=== PATIENT | male | born 1975 | race African-American/Black ===

== ENCOUNTER 2018-10-10 17:52 | Inpatient (IN) | payer OTHER ==
[~2018-10-10] VITALS: Ht 172.7 cm; Wt 77.9 kg
--- NOTE | ~2018-10-10 | HC ---
[facility] [place] [address] CONSULTATION Name: ARTHUR POP Room #: 456-P ADM IN M.R.#: [id number] Admission: 10/10/18 Attend Phys: Russel Muñoz MD Discharge: Date of : 77 Report #: [id number] THIS REPORT FOR: //name// CC: Russel Bonilla DATE OF SERVICE: 10/11/2018 REASON FOR CONSULTATION: Elevated creatinine. HISTORY OF PRESENT ILLNESS: This is a 42-year-old who is really not able to provide me with the details of his history who was brought because of lower extremity swelling and ulceration. He is known to have peripheral vascular disease, diabetes mellitus, hypertension per records. He is also known to have end-stage renal disease and was on dialysis for a couple of months. He used to follow up at [facility]. There is also a mention that the patient had a lengthy stay at [facility] requiring hemodialysis. He was told that he no longer is in need for dialysis. He has severe diastolic dysfunction along with severely hypokinetic inferior wall on his cardiac echo with ejection fractions of around 35%. He also has significant pulmonary hypertension. He presented to the Emergency Room reporting that he had been having some leg pain and swelling. He was admitted to be further evaluated. He also reported fever and vomiting on his presentation. He was diagnosed recently to have C. diff. The details of those were obtained from the medical records. He stays in [facility]. PAST MEDICAL HISTORY: Obtained from the medical record: 1. Diabetes mellitus. 2. Hypertension. 3. Left below-knee amputation. 4. Noncompliance. 5. End-stage renal disease. 6. Cardiomyopathy. MEDICATIONS: 1. Amlodipine. 2. Carvedilol. 3. Vancomycin. 4. Furosemide. 5. Sodium bicarbonate. 6. Aldactone. FAMILY HISTORY: Dad was diabetic and hypertensive. Dad also had end-stage renal disease. SOCIAL HISTORY: Currently resides in a nursing facility. [facility] [address] [place] [address] CONSULTATION Name: ARTHUR POP Room #: 456-[facility] IN M.R.#: [id number] Admission: 10/10/18 Attend Phys: Russel Muñoz MD Discharge: Date of : 77 Report #: [id number] REVIEW OF SYSTEMS: I was unable to obtain review of systems from the patient given his mental status. PHYSICAL EXAMINATION: VITAL SIGNS: He is lethargic, confused. Blood pressure was 89/53 when evaluated. Temperature max was 39.4. HEAD AND NECK: No jugular venous distention. He has a left-sided Tesio catheter. CHEST: Decreased air entry bilaterally. CARDIOVASCULAR: No rub detected. ABDOMEN: Soft, nontender. LOWER EXTREMITIES: He has a left below knee amputation. His right lower extremity is grossly swollen. He has a dressing wrapped around his right ankle. He has +3 edema. LABORATORY DATA: Reviewed. Most recent labs revealed white blood cell count of 8.5%. Hemoglobin is 11.7. Sodium was 139, chloride was 109, carbon dioxide was 18, BUN was 57, creatinine was 5.2. CPK was 424. AST was elevated at 49, ALT was elevated at 89. Albumin was significantly low at 0.9. Microbiology showed that his blood cultures are positive for Gram-positive cocci. ASSESSMENT, IMPRESSION, PLAN: 1. End-stage renal disease. 2. Gram-positive bacteremia. 3. Diabetes mellitus. 4. Hypertension. 5. Sepsis. 6. Right lower extremity wound and cellulitis. 7. This seems to be in all end-stage renal disease given the patient's current history. I would like to obtain his previous medical records. He was recently told that he no longer will need dialysis and will have to obtain his previous labs. He had utilized a left Tesio catheter in the past. 8. He is acidotic that is maintained on sodium bicarbonate. He is hypotensive and I will stop his blood pressure medications. 9. For his Gram-negative bacteremia and his hypertension, he might need to move down to the intensive care unit and I will defer that to the primary team if his condition deteriorates. 10. Empiric antibiotic coverage. 11. Wound care. 12. No dialysis is needed at this point. 13. Bolus with IV fluid if needed. 14. He is definitely hypervolemic and will need to resume his diuretics. 15. ID consultation. 16. Wound care to see. [address] [address] CONSULTATION Name: ARTHUR POP Room #: 456-P ADM IN M.R.#: [id number] Admission: 10/10/18 Attend Phys: Russel Muñoz MD Discharge: Date of : 77 Report #: [id number] Further management will be decided after we obtain his medical records. By: 2046 [id number] Tamy Hernández, /nt
--- NOTE | ~2018-10-10 | 2DMMODE ---
[facility] [address] [place] [address] 2 D/M-MODE ECHOCARDIOGRAM Name: ARTHUR POP Room #: 456-P ADM IN M.R.#: [id number] Admission: 10/10/18 Attend Phys: Russel Muñoz MD Discharge: Date of : 77 Date of Service: 10/11/18 1507 Report #: [id number] THIS REPORT FOR: //name// APPROVED REPORT Study performed: 10/11/2018 12:30:39 EXAM: Comprehensive 2D, Doppler, and color-flow Echocardiogram Patient Location: Bedside Room #: 456 Status: routine BSA: 1.91 HR: 90 bpm BP: 120/73 mmHg Rhythm: NSR Other Information Study Quality: Excellent/limited patient cooperation Indications Pericaridal effusion. Hx: DM, HTN, left BKA 2D Dimensions RVDd: 42.27 mm IVSd: 12.76 (7-11mm) LVOT Diam: 21.33 (18-24mm) LVDd: 52.33 mm PWd: 13.05 (7-11mm) Ascending Ao: 27.64 (22-36mm) LVDs: 43.52 (25-40mm) Aortic Root: 30.61 mm Volumes Left Atrial Volume (Systole) Single Plane 4CH: 98.41 mL Single Plane 2CH: 90.54 mL LA ESV Index: 54.00 mL/m2 Aortic Valve AoV Peak Aden.: 1.23 m/s AO Peak Gr.: 6.06 mmHg LVOT Max P.38 mmHg LVOT Max V: 0.77 m/s CHASITY Vmax: 2.24 cm2 Mitral Valve E/A Ratio: 2.6 MV Decel. Time: 107.60 ms [facility] [place] [address] [place] [address] 2 D/M-MODE ECHOCARDIOGRAM Name: KARI POPNETH Room #: 456-P [facility] IN .R.#: [id number] Admission: 10/10/18 Attend Phys: Russel Muñoz MD Discharge: Date of : 77 Date of Service: 10/11/18 1507 Report #: [id number] MV E Max Aden.: 1.19 m/s MV A Aden.: 0.45 m/s MV PHT: 31.20 ms IVRT: 34.60 ms Pulmonary Valve PV Peak Aden.: 0.95 m/s PV Peak Gr.: 3.61 mmHg Pulmonary Vein P Vein S: 0.46 m/s P Vein D: 0.60 m/s P Vein S/D Ratio: 0.77 Tricuspid Valve TR Peak Aden.: 3.22 m/s RAP Estimate: 15.00 mmHg TR Peak Gr.: 41.49 mmHg PA Pressure: 57.00 mmHg Left Ventricle The left ventricle is normal size. There is global hypokinesis of the left ventricle. Mild concentric left ventricular hypertrophy. Left ventricular systolic function is moderate to severely decreased. Base of inferior wall severely hypokinetic. LVEF 35%. Severe diastolic dysfunction is present (restrictive filling). Right Ventricle Right ventricle is at the upper limits of normal. Atria Left atrium is moderate to severely dilated. Right atrium is at the upper limits of normal. Aortic Valve The aortic valve is normal in structure. No aortic regurgitation is present. There is no aortic valvular stenosis. Mitral Valve The mitral valve is normal in structure. Moderate mitral regurgitation. Tricuspid Valve The tricuspid valve is normal in structure. Mild to moderate tricuspid regurgitation. Estimated PAP is 55-60mmHg. Pulmonic Valve The pulmonary valve is normal in structure. Mild pulmonic [address] [address] 2 D/M-MODE ECHOCARDIOGRAM Name: DONNDENISE REYESH Room #: 456-P ADM IN M.R.#: [id number] Admission: 10/10/18 Attend Phys: Russel Muñoz MD Discharge: Date of : 77 Date of Service: 10/11/18 1507 Report #: [id number] regurgitation. Great Vessels The aortic root is normal in size. The ascending aorta is normal in size. IVC is dilated and collapses <50% with inspiration. Pericardium Small pericardial effusion <Conclusion> Left ventricular systolic function is moderate to severely decreased. Base of inferior wall severely hypokinetic. LVEF 35%. Severe diastolic dysfunction (restrictive filling). Left atrium is moderate to severely dilated. The aortic valve is normal in structure. No aortic regurgitation or stenosis The mitral valve is normal in structure. Moderate mitral regurgitation. Mild to moderate tricuspid regurgitation. Estimated pullmonary artery pressure of 55-60mmHg. Small pericardial effusion <ELECTRONICALLY SIGNED> By: Donn Pierce MD, FACC 10/11/18 1507 150 150 Donn Pierce MD, FACC /INF
--- NOTE | ~2018-10-10 | HC ---
[facility] [place] [address] CONSULTATION Name: ARTHUR POP Room #: 456-P ADM IN M.R.#: [id number] Admission: 10/10/18 Attend Phys: Russel Muñoz MD Discharge: Date of : 77 Report #: [id number] THIS REPORT FOR: //name// CC: Russel Bonilla DATE OF SERVICE: 10/17/2018 HISTORY OF PRESENT ILLNESS: The patient is a 42-year-old -Danish male, admitted with sepsis, noted to have right leg cellulitis, right heel wound. He is noted to have soft tissue infection with chronic wound, posterior calcaneus. Infectious Disease has been following. He is on IV ceftriaxone. Wound care is involved as well. He also was noted to have a small pericardial effusion. He has chronic kidney disease stage 4-5 and has had recent dialysis, although he is not currently on dialysis. There have been some problems with noncompliance at times with refusal to take medications, which was happening prior to his hospitalization as well. He has also recently had C. diff and Infectious Disease is continuing to follow in this regard. From my review, I do not see that this is an ongoing current problem however. PAST MEDICAL HISTORY: Includes diabetes mellitus, hypertension, renal insufficiency with recent past dialysis. He has had a prior left below knee amputation. He has had prior stays at [facility] prior to going to [facility]. SOCIAL HISTORY: He lives at [facility]. He was noted to be able to transfer in and out of the wheelchair and could propel himself in the manual wheelchair. REVIEW OF SYSTEMS: He complains of headache. No other specific complaints were versed. PHYSICAL EXAMINATION: GENERAL: A 42-year-old -Danish male, lying in bed. Eyes are closed. He complains of headache. He did not want to open his eyes for me. He was of limited cooperation and I did a brief evaluation. VITAL SIGNS: His temperature is 98.8, pulse 91, respirations 18, blood pressure 159/85. HEENT: Facies appeared to be symmetric. NEUROMUSCULOSKELETAL: Functional range of motion of both upper extremities. Strength is probably a grade 3+ to 4-/5. Left below knee amputation distal stump appears to be intact. Right lower extremity, he is in a PRAFO-type boot. He could wiggle his toes for me. Tone appeared to be intact. He has been mod assist with sit to stand and bed to chair has been min assist. ASSESSMENT: A 42-year-old male with the following problem list: [facility] [address] [place] [address] CONSULTATION Name: ARTHUR POP Room #: 456-P [facility] IN M.R.#: [id number] Admission: 10/10/18 Attend Phys: Russel Muñoz MD Discharge: Date of : 77 Report #: [id number] 1. Medical complexity with generalized debilitation. 2. Sepsis, likely due to right lower extremity cellulitis. 3. Right heel wound. 4. Chronic kidney disease, stage 4. 5. Diabetes mellitus type 2. 6. Recent Clostridium difficile. 7. Small pericardial effusion. 8. Prior left below knee amputation. 9. Diabetes mellitus. 10. Hypertension. 11. Prior history of medication noncompliance. PLAN: We will need to see how he does in tolerating therapies. He may be a candidate for a short acute in-hospital inpatient rehabilitation stay to further improve his functional independence and to try to achieve a level where he can return back to his prior living situation. At this point, we will be glad to follow along with you regarding his rehab therapy needs. By: 1240 1448 Willian Faust MD /nt
--- NOTE | ~2018-10-10 | HC ---
[facility] [place] [address] CONSULTATION Name: ARTHUR POP Room #: 456-P ADM IN M.R.#: [id number] Admission: 10/10/18 Attend Phys: Russel Muñoz MD Discharge: Date of : 77 Report #: [id number] THIS REPORT FOR: //name// CC: Russel Bonilla DATE OF SERVICE: 10/11/2018 CHIEF COMPLAINT: Right heel ulceration. HISTORY OF PRESENT ILLNESS: This is a 42-year-old male patient who is resident in a local [facility] facility, who presented to the Emergency Department with right leg swelling and redness. He apparently developed that earlier in the morning. He has a history of a prior left below knee amputation and a chronic ulceration to his right heel. He apparently has had vomiting and diarrhea as well. He has previously been cared for at [facility] and at [facility] and now lives at a [facility] facility. He has a history of chronic kidney disease, previously requiring dialysis, but has not dialyzed in approximately 2 months. The patient denies any pain associated with his heel at this time. He does note he has persisting diarrhea, which is causing him some discomfort. PAST MEDICAL HISTORY: Positive for left below-knee amputation, chronic kidney disease, previously requiring hemodialysis, hypertension, diabetes mellitus. FAMILY HISTORY: Positive for diabetes and hypertension and end-stage renal disease in his father. His mother has required a pacemaker. SOCIAL HISTORY: The patient admits to occasional alcohol use. Never smoked tobacco. Never used any illicit drugs. ALLERGIES: None. MEDICATIONS: Include amlodipine, calcium acetate, carvedilol, Aranesp, vancomycin, Lasix, hydralazine, insulin, quetiapine, senna, sodium bicarbonate and Aldactone. REVIEW OF SYSTEMS: CONSTITUTIONAL: The patient did complain of fever and chills on admission. ENT: The patient denies earache, nasal drainage or sore throat. CARDIOVASCULAR: The patient denies chest pain, palpitation or diaphoresis. EYES: The patient denies visual change, redness or drainage. ENT: The patient denies earache, nasal drainage, sore throat. PULMONARY: The patient denies cough or shortness of breath. GASTROINTESTINAL: The patient denies nausea or vomiting today. He does complain of persisting diarrhea. Denies abdominal pain. ORTHOPEDIC: The patient notes previous left below knee amputation, notes [facility] [address] [place] [address] CONSULTATION Name: ARTHUR POP Room #: 456-P [facility] IN M.R.#: [id number] Admission: 10/10/18 Attend Phys: Russel Muñoz MD Discharge: Date of : 77 Report #: [id number] chronic ulcer to his right heel. PHYSICAL EXAMINATION: VITAL SIGNS: At this time include temperature 99.1, pulse 114, respiration of 17, blood pressure 120/73. GENERAL: This is a chronically ill-appearing male patient who appears to be in mild discomfort. HEAD: Head normocephalic. NOSE AND THROAT: Clear. NECK: Supple. LUNGS: Diminished. HEART: Regular. ABDOMEN: Soft, nontender, nondistended. LOWER EXTREMITIES: Demonstrate 3+ edema of the right lower extremity with areas of scarring suggesting previous ulcerations. He has what appears to be a stage 3 pressure ulceration to his right posterolateral heel. It is relatively clean and granulating, does not appear to be overtly infected. I am not able to palpate distal pulses. This may be in part due to the 3+ edema present. Left leg demonstrates a well-healed left below-knee amputation. NEUROLOGIC: Alert. He does move all 4 extremities spontaneously. LABORATORY DATA: Includes sodium 139, potassium 4.4, chloride 109, CO2 18, BUN 57, creatinine 5.2, glucose 112, SGOT is 49, total bilirubin 0.5, calcium is 8.7. Alkaline phosphatase is quite elevated at 1967, SGPT is 89, total protein 6.1, albumin is 0.9. Total CPK is 424. Troponin is less than 0.6, albumin is 0.9. CRP is 36.5. Urine drug screen is negative. White blood cell count 8.5 with hemoglobin 11.7. Sed rate is elevated at 95. Chest x-ray demonstrates no acute cardiopulmonary disease, dual lumen dialysis catheter via left IJ approach with distal tips in the upper right atrium noted. CT of the chest, abdomen and pelvis demonstrates bulky bilateral inguinal lymphadenopathy, which is nonspecific and could be reactive, but could also represent malignancy related to lymphoma or metastatic disease, generalized reticular subcutaneous fat edema within the lower flanks and proximal upper extremities may be related to anasarca, enlarged liver, small right pleural effusion, small pericardial effusion, advanced atherosclerotic disease. CT scan of the lower extremity demonstrates diffuse reticular subcutaneous fat extending from the flanks and involving the entire right lower extremity and left lower extremity to the level of left below knee amputation with postoperative changes within the left thigh from below knee amputation. This is nonspecific, it may really be related to chronic venous stasis or cellulitis, bulky bilateral inguinal lymphadenopathy, right greater than left, which is nonspecific. CLINICAL IMPRESSION: 1. Stage 2 pressure ulceration of the right heel, which is complicated likely by underlying diabetes, severe protein-calorie malnutrition and likely peripheral arterial disease. [facility] [address] [place] [address] CONSULTATION Name: ARTHUR POP Room #: 456-P ADM IN [place]#: [id number] Admission: 10/10/18 Attend Phys: Russel Muñoz MD Discharge: Date of : 77 Report #: [id number] 2. Bilateral lower extremity edema with inguinal lymphadenopathy. Differential diagnosis would include lymphoma versus metastatic disease versus reactive lymphadenopathy. 3. Severe protein-calorie malnutrition with albumin of 0.9. 4. Chronic kidney disease, previously requiring dialysis. 5. Peripheral arterial disease by clinical exam. 6. Diabetes mellitus. RECOMMENDATIONS: At this point in time, I think it would be worthwhile to check an arterial Doppler to ensure he has adequate flow. He likely has significant atherosclerotic disease. He will need aggressive nutritional support. We will recommend silver foam to the right heel for padding and protection and to assist with wound healing. Also, recommend a PRAFO boot for pressure prophylaxis. Would not recommend external compression to the lower extremities at this time. He may have significant lymphatic obstruction as well as peripheral arterial disease noted. I appreciate being asked to see the patient in consultation. <ELECTRONICALLY SIGNED> By: Willy Acosta MD 10/11/18 1749 1551 1641 Willy Acosta MD /nt
--- NOTE | ~2018-10-10 | EKG ---
[address] [address] ELECTROCARDIOGRAM REPORT Name: ARTHUR POP Room #: 456-P ADM IN M.R.#: [id number] Admission: 10/10/18 Attend Phys: Russel Muñoz MD Discharge: Date of : 77 Report #: [id number] THIS REPORT FOR: //name// [facility] ED Test Date: 2018-10-10 Test Time: 18:52:31 Pat Name: ARTHUR POP Department: Room: [facility] Gender: M Pack Changer: BENITO : 1975 Requested By: Syeda Saravia Order Number: [id number] MD: Donn Pierce Measurements Intervals [place] Rate: 127 P: 66 MA: 119 QRS: 54 QRSD: 72 T: 118 QT: 297 QTc: 432 Interpretive Statements Sinus tachycardia Probable left ventricular hypertrophy Nonspecific T abnormalities, lateral leads No previous ECG available for comparison Electronically Signed On 10-11-2018 16:06:27 [employer] by Donn Pierce [email or web address] <ELECTRONICALLY SIGNED> By: Donn Pierce MD, [facility] 10/11/18 1606 1852 51 Donn Pierce MD, FACC /EPI
[2018-10-10 17:53] VITALS: BP 157/82
[2018-10-10] MEDS ORDERED: CALCIUM ACETAT667 M2 PO (18:42)
[2018-10-10] MEDS ORDERED: AMLODIPINE BESY10 MG PO (18:42)
[2018-10-10] MEDS ORDERED: COREG25 MG PO (18:43)
[2018-10-10] MEDS ORDERED: ARANESP 6060 MCG/0.3 SUBQ (18:44)
[2018-10-10 18:57] LABS: ABSOLUTE NEUTROPHILS 7.6 thou/uL (1.4-8.2); BASOPHILS 0.5 % (0.0-2.0); EOSINOPHILS 0.8 % (0.0-3.0); HEMATOCRIT 35.4 % (42.0-52.0); HEMOGLOBIN 11.7 gm/dL (14.0-18.0); LYMPHOCYTES 5.8 % (24.0-44.0); MCH 28.7 pg (26.0-34.0); MCV 87.1 fL (80.0-100.0); MONOCYTES 2.9 % (1.0-8.0); PLATELET COUNT 353 thou/uL (150-400); RBC 4.06 mil/uL (4.50-6.00); WBC 8.5 thou/uL (4.0-11.0)
[2018-10-10 19:03] LABS: ANION GAP 12 mmol/L (7-16); BUN 57 mg/dL (7-18); CALCIUM 8.7 mg/dL (8.5-10.1); CHLORIDE 109 mmol/L (98-107); CO2 18 mmol/L (21-32); CREATININE 5.2 mg/dL (0.7-1.3); GLUCOSE 112 mg/dL (74-106); POTASSIUM 4.4 mmol/L (3.5-5.1); SODIUM 139 mmol/L (136-145)
[2018-10-10] MEDS ORDERED: VANCOMYCIN HCL125 MG PO (19:13)
[2018-10-10] MEDS ORDERED: HYDRALAZINE 2525 MG PO (19:14)
[2018-10-10] MEDS ORDERED: LASIX 80 MG TAB80 MG PO (19:14)
[2018-10-10 19:22] LABS: ALBUMIN 0.9 g/dL (3.4-5.0); SGOT 49 U/L (15-37); SGPT 89 U/L (30-65); TOTAL BILIRUBIN 0.5 mg/dL (<0.1-1.0); TOTAL PROTEIN 6.1 g/dL (6.4-8.2); TROPONIN-I <0.06 ng/mL (<0.06)
[2018-10-10] MEDS ORDERED: HEPARIN 5,5000 UNIT3 SUBQ (21:04)
[2018-10-10] MEDS ORDERED: HUMALOG JU100 UNIT/1 (21:05)
[2018-10-10] MEDS ORDERED: SODIUM BICARBO650 M3 PO (21:06)
[2018-10-10] MEDS ORDERED: SENNA8.6 MG PO (21:06)
[2018-10-10] MEDS ORDERED: SEROQUEL 25 MG25 MG PO (21:06)
[2018-10-10] MEDS ORDERED: SPIRONOLACTONE25 M1 PO (21:06)
[2018-10-10 21:41] LABS: URINE BILIRUBIN NEGATIVE (Negative); URINE BLOOD 2+ (Negative); URINE CLARITY CLEAR; URINE COLOR YELLOW; URINE GLUCOSE-RANDOM* 2+ (Negative); URINE KETONES NEGATIVE (Negative); URINE LEUKOCYTES-REFLEX NEGATIVE (Negative); URINE NITRITE-REFLEX NEGATIVE (Negative); URINE PROTEIN (DIPSTICK) 3+ (Negative); URINE SPECIFIC GRAVITY 1.025 (1.005-1.035); URINE UROBILINOGEN 0.2 E.U./dl (0.2-1.0)
[2018-10-10 21:49] LABS: AMP/METHAMP Negative (Negative); BARBITURATES Negative (Negative); BENZODIAZEPINES Negative (Negative); COCAINE Negative (Negative); METHADONE Negative (Negative); OPIATES Negative (Negative); PCP Negative (Negative)
[2018-10-10 21:53] LABS: CASTS None Seen /LPF (None Seen); CRYSTALS None Seen /LPF (None Seen); MUCUS 0-3 Light strn/LPF (None Seen); SQUAMOUS 0-3 Few /LPF (0-3); URINE WBC-REFLEX 0-5 Rare /HPF (0-5)
[2018-10-11] VITALS (7 sets, daily range): BP systolic 88–132; BP diastolic 53–80
[2018-10-12 00:06] VITALS: BP 85/51
[2018-10-12 03:32] VITALS: BP 86/53
[2018-10-12 04:40] LABS: HEMATOCRIT 29.6 % (42.0-52.0); MCV 87.5 fL (80.0-100.0); RBC 3.39 mil/uL (4.50-6.00); RDW 15.8 % (10.5-14.5); WBC 23.2 thou/uL (4.0-11.0)
[2018-10-12 04:44] LABS: ALBUMIN 0.6 g/dL (3.4-5.0); CALCIUM 7.6 mg/dL (8.5-10.1); MAGNESIUM 1.8 mg/dL (1.8-2.4); POTASSIUM 4.9 mmol/L (3.5-5.1); TOTAL BILIRUBIN 1.1 mg/dL (<0.1-1.0); TOTAL PROTEIN 5.5 g/dL (6.4-8.2)
[2018-10-12 04:46] LABS: CREATININE 6.3 mg/dL (0.7-1.3)
[2018-10-12 04:50] LABS: HEMOGLOBIN 9.5 gm/dL (14.0-18.0); PLATELET COUNT 271 thou/uL (150-400)
[2018-10-12 05:28] LABS: ABSOLUTE NEUTROPHILS 20.2 thou/uL (1.4-8.2); METAMYELOCYTES 1 %
[2018-10-12 05:29] LABS: PLATELET ESTIMATE NORMAL
[2018-10-12 05:30] LABS: POLYCHROMASIA OCCASIONAL; SCHISTOCYTES OCCASIONAL
[2018-10-12 07:25] VITALS: BP 77/48
[2018-10-12 15:12] VITALS: BP 95/54
[2018-10-12 19:12] VITALS: BP 95/68
[2018-10-13 01:29] LABS: HEMATOCRIT 30.4 % (42.0-52.0); HEMOGLOBIN 9.9 gm/dL (14.0-18.0); MCH 28.1 pg (26.0-34.0); MCHC 32.4 g/dL (28.0-37.0); MCV 86.6 fL (80.0-100.0); PLATELET COUNT 316 thou/uL (150-400); RBC 3.51 mil/uL (4.50-6.00); RDW 15.3 % (10.5-14.5); WBC 23.7 thou/uL (4.0-11.0)
[2018-10-13 01:58] LABS: ALBUMIN 0.7 g/dL (3.4-5.0); CREATININE 7.2 mg/dL (0.7-1.3); MAGNESIUM 2.1 mg/dL (1.8-2.4); PHOSPHORUS 9.5 mg/dL (2.5-4.9); POTASSIUM 4.9 mmol/L (3.5-5.1); TOTAL BILIRUBIN 1.2 mg/dL (<0.1-1.0); TOTAL PROTEIN 5.2 g/dL (6.4-8.2)
[2018-10-13 02:16] LABS: ABSOLUTE NEUTROPHILS 20.9 thou/uL (1.4-8.2)
[2018-10-13 03:50] VITALS: BP 94/63
[2018-10-13 08:17] VITALS: BP 101/64
[2018-10-13 12:49] LABS: GGTP 688 U/L (15-85)
[2018-10-13 14:19] VITALS: BP 106/74
[2018-10-13 20:10] VITALS: BP 135/82
[2018-10-14 02:08] LABS: HEP B SURFACE Ab(ANTI-HBS Non Reactive (()); HEPATITIS B SURFACE AG Negative (Negative)
[2018-10-14 05:09] LABS: ALBUMIN 0.7 g/dL (3.4-5.0); CALCIUM 7.5 mg/dL (8.5-10.1); PHOSPHORUS 6.7 mg/dL (2.5-4.9); POTASSIUM 4.2 mmol/L (3.5-5.1)
[2018-10-14 05:20] VITALS: BP 127/85
[2018-10-14 05:27] LABS: CREATININE 5.5 mg/dL (0.7-1.3)
[2018-10-14 09:13] VITALS: BP 136/95
[2018-10-14 16:51] VITALS: BP 136/88
[2018-10-14 19:33] VITALS: BP 143/90
[2018-10-15 03:52] VITALS: BP 142/90
[2018-10-15 05:42] LABS: HEMATOCRIT 28.9 % (42.0-52.0); HEMOGLOBIN 9.4 gm/dL (14.0-18.0); MCH 28.2 pg (26.0-34.0); MCHC 32.7 g/dL (28.0-37.0); MCV 86.4 fL (80.0-100.0); RBC 3.35 mil/uL (4.50-6.00); RDW 15.3 % (10.5-14.5); WBC 13.5 thou/uL (4.0-11.0)
[2018-10-15 05:59] LABS: ALBUMIN 0.6 g/dL (3.4-5.0); CALCIUM 7.7 mg/dL (8.5-10.1); CREATININE 5.8 mg/dL (0.7-1.3); PHOSPHORUS 7.4 mg/dL (2.5-4.9); POTASSIUM 4.8 mmol/L (3.5-5.1)
[2018-10-15 09:36] VITALS: BP 162/104
[2018-10-15 14:55] VITALS: BP 167/92
[2018-10-15 19:38] VITALS: BP 158/87
[2018-10-16 05:02] VITALS: BP 162/102
[2018-10-16 06:02] LABS: ALBUMIN 0.7 g/dL (3.4-5.0); CALCIUM 8.1 mg/dL (8.5-10.1); PHOSPHORUS 5.5 mg/dL (2.5-4.9); POTASSIUM 4.2 mmol/L (3.5-5.1)
[2018-10-16 06:10] LABS: CREATININE 4.4 mg/dL (0.7-1.3)
[2018-10-16 14:30] VITALS: BP 159/92
[2018-10-16 20:10] VITALS: BP 163/94
[2018-10-17 02:32] VITALS: BP 165/93
[2018-10-17 06:30] LABS: ALBUMIN 0.7 g/dL (3.4-5.0); CALCIUM 8.4 mg/dL (8.5-10.1); CREATININE 5.1 mg/dL (0.7-1.3); PHOSPHORUS 6.2 mg/dL (2.5-4.9); POTASSIUM 4.2 mmol/L (3.5-5.1)
[2018-10-17 07:12] VITALS: BP 159/85
[2018-10-17 17:11] VITALS: BP 173/93
[2018-10-17 19:11] VITALS: BP 174/105
[2018-10-18 02:43] VITALS: BP 168/97
[2018-10-18 03:41] LABS: ALBUMIN 0.7 g/dL (3.4-5.0); CALCIUM 8.4 mg/dL (8.5-10.1); CREATININE 5.4 mg/dL (0.7-1.3); PHOSPHORUS 6.2 mg/dL (2.5-4.9)
[2018-10-18 05:31] LABS: HEMATOCRIT 32.3 % (42.0-52.0); HEMOGLOBIN 10.4 gm/dL (14.0-18.0); MCHC 32.1 g/dL (28.0-37.0); MCV 87.1 fL (80.0-100.0); RBC 3.7 mil/uL (4.50-6.00); RDW 15.2 % (10.5-14.5); WBC 7.2 thou/uL (4.0-11.0)
[2018-10-18 07:27] VITALS: BP 161/99
[2018-10-18 11:23] VITALS: BP 174/103
[2018-10-18 16:30] VITALS: BP 170/100
[2018-10-18 19:41] VITALS: BP 164/103
[2018-10-19 03:56] VITALS: BP 168/88
[2018-10-19 05:50] LABS: HEMATOCRIT 30.3 % (42.0-52.0); HEMOGLOBIN 10.1 gm/dL (14.0-18.0); MCH 28.8 pg (26.0-34.0); MCHC 33.5 g/dL (28.0-37.0); RBC 3.52 mil/uL (4.50-6.00); RDW 14.7 % (10.5-14.5); WBC 8.1 thou/uL (4.0-11.0)
[2018-10-19 06:03] LABS: MAGNESIUM 1.9 mg/dL (1.8-2.4)
[2018-10-19 06:06] LABS: CREATININE 4.2 mg/dL (0.7-1.3)
[2018-10-19 08:02] VITALS: BP 163/86
[2018-10-19 10:29] VITALS: BP 163/86
[2018-10-19] MEDS ORDERED: VEETIDS 250MG250 M1 PO (14:10)
== END 2018-10-19 17:34 | DRG 871 ==
LOC: ER 17:52 → 4W 23:16 → EROBS 23:16 → 4W 10-11 01:33
PROVIDERS: Hospitalist; Internal Medicine; Internal Medicine Nephrology; Specialist; Student in an Organized Health Care Education/Training Program
PROC: 5A1D70Z Performance of Urinary Filtration, Intermittent, Less than 6 Hours Per Day (ICD-10-PCS; principal; 2018-10-13)
PROC: 5A1D70Z Performance of Urinary Filtration, Intermittent, Less than 6 Hours Per Day (ICD-10-PCS; 2018-10-14)
PROC: 5A1D70Z Performance of Urinary Filtration, Intermittent, Less than 6 Hours Per Day (ICD-10-PCS; 2018-10-15)
PROC: 5A1D70Z Performance of Urinary Filtration, Intermittent, Less than 6 Hours Per Day (ICD-10-PCS; 2018-10-18)
DX: A40.0 Sepsis due to streptococcus, group A (principal); L89.613 Pressure ulcer of right heel, stage 3; E43 Unspecified severe protein-calorie malnutrition; N18.6 End stage renal disease; L03.115 Cellulitis of right lower limb; I31.3 Pericardial effusion (noninflammatory); N17.9 Acute kidney failure, unspecified; I42.9 Cardiomyopathy, unspecified; I12.0 Hypertensive chronic kidney disease with stage 5 chronic kidney disease or end stage renal disease; E11.22 Type 2 diabetes mellitus with diabetic chronic kidney disease; E11.51 Type 2 diabetes mellitus with diabetic peripheral angiopathy without gangrene; R74.0 Nonspecific elevation of levels of transaminase and lactic acid dehydrogenase [LDH]; R59.9 Enlarged lymph nodes, unspecified; I34.0 Nonrheumatic mitral (valve) insufficiency; Z89.512 Acquired absence of left leg below knee; Z68.26 Body mass index [BMI] 26.0-26.9, adult; Z82.49 Family history of ischemic heart disease and other diseases of the circulatory system; Z83.3 Family history of diabetes mellitus; Z84.1 Family history of disorders of kidney and ureter; Z91.14 Patient's other noncompliance with medication regimen; Z23 Encounter for immunization; Z99.2 Dependence on renal dialysis
CPT/HCPCS: 10045; 32100

== ENCOUNTER 2018-10-19 13:06 | Inpatient (IN) | payer OTHER ==
[~2018-10-19] VITALS: Ht 180.3 cm; Wt 74.3 kg
--- NOTE | ~2018-10-19 | HC ---
[facility] [place] [address] CONSULTATION Name: ARTHUR POP Room #: 515-P [facility] IN M.R.#: [id number] Admission: 10/19/18 Attend Phys: Willian Faust MD Discharge: 10/28/18 Date of : 77 Report #: [id number] THIS REPORT FOR: //name// CC: Willian Faust Carlos Bonilla DATE OF SERVICE: 10/23/2018 AGE: 42 ATTENDING PHYSICIAN: Willian Faust MD. BOX COVERING MACHINE OPERATOR: Yaya Liriano, PhD. CLINICAL PRESENTATION: The patient is a 42-year-old male admitted to the rehabilitation unit at [facility] for comprehensive inpatient rehabilitation program to improve functional mobility, activities of daily living and self-care and mental status secondary to deficits from medical complexity and generalized debility. The patient is reported to have been living at home with his parents when he experienced a decline and ability to meet independent activities of daily living. He carries a diagnosis of chronic kidney disease stage 4-5 and has recently been on dialysis. His assessment on admission to rehab includes medical complexity with generalized debilitation; sepsis, likely due to right lower extremity cellulitis; right heel pain; chronic kidney disease, stage 4; diabetes mellitus type 2; recent C. diff; small pericardial effusion; prior left below the knee amputation; diabetes mellitus; hypertension and a history of medical noncompliance. A complete description of his medical condition and history can be found in his medical record. Neuropsychological consultation was requested to provide assistance in the assessment of cognitive and emotional status and to provide recommendations and services as needed. As indicated prior to this hospitalization, he was living with both parents. The patient has never . He reports having had 3 children with 3 separate companions. 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 TECHNIQUES UTILIZED: Clinical interview, review of medical records, staff consultation and behavioral observation, mini mental status exam 2 standard version, clock drawing and verbal fluency assessment (category and letter fluency). EXAMINATION FINDINGS: The patient was alert and cooperative with the assessment. He accurately described events prior to his admission. His [facility] [address] [place] [address] CONSULTATION Name: ARTHUR POP Room #: 515-P [facility] IN M.R.#: [id number] Admission: 10/19/18 Attend Phys: Willian Faust MD Discharge: 10/28/18 Date of : 77 Report #: [id number] current symptoms include intermittent headaches and depression. He describes his anxiety primarily concerned with recovery to the extent of getting discharged and leaving the hospital. He does not report difficulty with sleep, appetite or depression. He indicates that memory, concentration and word finding are within normal limits. There is no history of alcohol abuse or cannabis use. The patient is presenting with variability in cognition along with subjective depression. Concentration is poor, although he indicates uncertainty about the severity of the depression. DIAGNOSTIC IMPRESSION: Mild neurocognitive disorder, unspecified, without behavior disorder. Unspecified depressive disorder. RECOMMENDATIONS: The patient may benefit from the use of antidepressant medication to assist with management of mood. Family conference may be helpful to clarify the extent of help that he will require at [facility] for optimizing independence. Outpatient psychological counseling could be of benefit to assist in his overall adjustment. Thank you very much for allowing me to provide the consultation on this patient. <ELECTRONICALLY SIGNED> By: Yaya Liriano, PhD 10/30/18 1638 1330 1823 Yaya Liriano, PhD /nt
--- NOTE | ~2018-10-19 | H ---
[facility] [place] [address] HISTORY AND PHYSICAL Name: ARTHUR POP Room #: 515-P ADM IN M.R.#: [id number] Admission: 10/19/18 Attend Phys: Willian Faust MD Discharge: Date of : 77 Report #: [id number] THIS REPORT FOR: //name// CC: Willian Bonilla DATE OF SERVICE: 10/19/2018 HISTORY OF PRESENT ILLNESS: This is a 42-year-old -Malawian male who was admitted to [facility] with sepsis secondary to right lower extremity cellulitis and right heel wound. He was followed closely by Infectious Disease and Wound Care. He also has chronic kidney disease stage 4-5 and was started on dialysis during his hospital stay. The patient has had problems in the past with medical noncompliance including refusal of medications, which has also happened during this hospital stay. The patient has had a decline in his functional mobility and needs close medical monitoring. He is admitted to acute inpatient rehabilitation for physical, occupational and speech therapies. Today, the patient complains of pain, numbness in his back and his thighs. He has refused to take his blood pressure medication. Blood pressure is elevated this morning at 175/89. He is not feeling motivated to do his therapy. He denies cough, shortness of air or chest pain. He denies abdominal pain, nausea, or constipation. He reports his appetite is poor because he does not like his food options. He denies any urinary complaints. He has swelling in his right leg that is about the same he reports. He does not have a prosthesis and he has had a left BKA in the past. PAST MEDICAL HISTORY: Type 2 diabetes, hypertension, chronic kidney disease stage 4-5, history of left BKA with no prosthesis, hypertension, hyperlipidemia. ALLERGIES: No known drug allergies. MEDICATIONS: Darbepoetin 60 mcg subcutaneous weekly, vancomycin 125 mg q.6 hours, Voltaren gel q.i.d. p.r.n., Tylenol 650 q. 6 hours p.r.n., sodium bicarbonate 650 daily, senna 8.6 mg daily, Imdur 10 mg twice a day, hydralazine 10 mg twice a day, Norvasc 10 mg daily, carvedilol 50 mg twice a day, calcium acetate 2668 mg with meals, penicillin V 500 mg q.6 hours x 40 doses, Aldactone 25 mg twice a day, Seroquel 25 mg twice a day, Humalog sliding scale a.c. and at bedtime, heparin 5000 units twice a day subq, Lasix 100 mg twice a day, Colace 100 mg twice a day. CODE STATUS: Full code. HABITS: The patient is a nonsmoker, nondrinker, no illicit drug use. SOCIAL HISTORY: Prior to admission the patient was residing at [facility]. He was undergoing pro-josue rehab therapy. He has another 2 weeks left that he [address] [address] HISTORY AND PHYSICAL Name: ARTHUR POP Room #: 515-P [facility] IN M.R.#: [id number] Admission: 10/19/18 Attend Phys: Willian Faust MD Discharge: Date of : 77 Report #: [id number] can return there once he is discharged from the hospital. He otherwise was living with his mom prior to that who also has her own health issues that she is apparently on the transplant list. He was apparently able to transfer in and out of his manual wheelchair and was able to propel and steer independently himself in the manual wheelchair. I am unclear on how much he was able to participate in his ADLs. His IADLs were provided at the facility. REVIEW OF SYSTEMS: Remainder of his 14-point review of systems negative except as listed in HPI. PHYSICAL EXAMINATION: VITAL SIGNS: Blood pressure 174/89, respirations 15, pulse of 88, temperature 98.6, sat is 98% on room air. GENERAL: He is awake, alert. He is oriented to person, place and situation. HEENT: Head is normocephalic. Eyes: EOMs are intact. No icterus. ENT: No sinus tenderness, no pharyngitis. NECK: No lymphadenopathy. CARDIOVASCULAR: Regular rate and rhythm with S1, S2 intact. CHEST: Lungs are very diminished throughout. No significant crackles or wheeze. ABDOMEN: Bowel sounds are positive, soft, nontender, nondistended. GENITOURINARY: No CVA tenderness. EXTREMITIES: Functional range of motion of bilateral upper extremities with no tremor, no clonus. Left BKA stump site has healed. He has no prosthesis as noted above. Right lower extremity venous stasis skin changes. He has Kerlix from toes to knees. The dressing is clean, dry and intact at this time. He does have significant edema in the right lower extremity. He is unable to lift antigravity off the bed for me at this time. He does have negative Homans sign. NEUROLOGIC: Cranial nerves 2-12 grossly intact. Sensation appears grossly intact as well. Transferring, sit to stand with is min assist, he is min assist to ambulate 15 feet with a front wheel walker, standby assist for propel and steer 175 feet in his manual wheelchair. Lower body dressing is min assist, bathe is min assist. PSYCHIATRIC: Very flat, easily agitated. Affect possible underlying cognitive issues. LABORATORY DATA: From 10/20/2018, sodium 138, potassium 4.3, BUN 32, creatinine 4.4, magnesium 1.9, phosphorus 5.5. WBC 7.8, hemoglobin 9.7, hematocrit 29.7, platelets 408. ASSESSMENT: 1. Medical complexity with generalized debilitation. 2. Sepsis likely secondary to right lower extremity cellulitis. 3. Right heel wound. 4. Chronic kidney disease stage 4 was on temporary hemodialysis. 5. Type [address] [address] HISTORY AND PHYSICAL Name: ARTHUR POP Room #: 515-P [facility] IN .R.#: [id number] Admission: 10/19/18 Attend Phys: Willian Faust MD Discharge: Date of : 77 Report #: [id number] 6. History of Clostridium difficile. 7. Small pericardial effusion. 8. History of left below-knee amputation with no prosthesis. 9. Hypertension. 10. Medical noncompliance. PLAN: The patient has been admitted to acute inpatient rehabilitation unit. He will have physical, occupational and speech therapy evaluations. He will have wound care physician follow along with Infectious Disease, Cardiology, Nephrology, Hospitalist and Neuropsychology testing. We will continue to spread encouragement to participate in his therapies and take medications as directed and I provided education with him this morning. Social work services will be closely involved for his discharge planning needs. Added some topicals and Tylenol for better pain control, please see extensive orders. <ELECTRONICALLY SIGNED> By: COLTON Kaiser 10/28/18 1508 1135 1210 COLTON Kaiser /nt
--- NOTE | ~2018-10-19 | H ---
[facility] [place] [address] HISTORY AND PHYSICAL Name: ARTHUR POP Room #: 515-P ADM IN M.R.#: [id number] Admission: 10/19/18 Attend Phys: Willian Faust MD Discharge: Date of : 77 Report #: [id number] THIS REPORT FOR: //name// CC: Willian Bonilla DATE OF SERVICE: 10/19/2018 POSTADMISSION PHYSICIAN EVALUATION HISTORY OF PRESENT ILLNESS: The patient is a 42-year-old male originally admitted with sepsis, noted to have right leg cellulitis, right heel wound. He was noted to have a soft tissue infection with chronic wound, posterior calcaneus. He has been treated with IV antibiotics as per Infectious Disease with wound care involved as well. He is noted to have chronic kidney disease stage 4-5 and has had recent dialysis. He also recently had C. diff. He is noted to have medical complexity with generalized debilitation and sepsis likely due to right lower extremity cellulitis along with the right heel wound and chronic kidney disease stage 4. The patient has been admitted for acute in-hospital inpatient rehabilitation. Please see the prior consult and Gilma Walter's history and physical dictation. Please see the above regarding past medical history, social history, and habits. MEDICATIONS: Please see the current list. This is noted to include vitamins, herbals, and supplements. As far as prior functional status, he was able to transfer in and out of the wheelchair and could propel himself in the manual wheelchair. He has a prior left below knee amputation. REVIEW OF SYSTEMS: No current complaints of chest pain, shortness of breath, abdominal discomfort. Please see the full history and physical dictation. PHYSICAL EXAMINATION: GENERAL: The patient is a 42-year-old -Danish male, in no obvious distress. HEENT: Appear to be benign. Facies appeared symmetric. He has rather a flat affect. CHEST: Sounded clear to auscultation. CARDIAC: Regular rate and rhythm. ABDOMEN: Bowel sounds positive, nontender. NEUROMUSCULOSKELETAL: He has functional range of motion of both upper extremities. Strength is probably a grade 3+ to 4-/5. He has a left below knee amputation. Distal stump appeared to be intact. Right lower extremity is in a PRAFO-type boot. He can wiggle his toes. Tone appeared to be intact. [address] [address] HISTORY AND PHYSICAL Name: ARTHUR POP Room #: 515-P [facility] IN ..#: [id number] Admission: 10/19/18 Attend Phys: Willian Faust MD Discharge: Date of : 77 Report #: [id number] Transfers are min assist with gait min assist 80 feet front-wheeled walker. ASSESSMENT: A 42-year-old -Danish male with the following problem list: 1. Medical complexity with generalized debilitation. 2. Sepsis, likely due to right lower extremity cellulitis. 3. Right heel wound. 4. Chronic kidney disease, stage 4. 5. Diabetes mellitus type 2. 6. Recent Clostridium difficile. 7. Small pericardial effusion. 8. Prior left oqppl-ubi-nhou amputation. 9. Diabetes mellitus. 10. Hypertension. 11. Prior history of medication noncompliance. PLAN: From a post-admission physician evaluation perspective, there are no relevant changes since the preadmission screening. Please see the above review of prior and current medical and functional conditions and comorbidities. Please see the patient's previous and current functional status. As far as risk of complications, the patient has the above noted multiple medical comorbidities. Initial plan of care involves the interdisciplinary acute inpatient rehabilitation program with the goal of maximizing the patient's functional independence, so he can hopefully return back to his prior living situation. Measurable functional goals would be for the patient to become modified independent with transfers, mobility, and ADLs, so he can hopefully return back to the prior living situation. Speech therapy will be assessing as well regarding cognition and communication. The measurable functional goals would be to improve his functional status to try to achieve at least independence at a wheelchair level and hopeful independence with basic ADLs, so that he can get back to the point where he can return back to his prior living situation. Prognosis is reasonably good with the estimated length of stay probably at least 10 days to 2 weeks. Potential barriers would include his multiple medical comorbidities and decreased functional status. We will have the multiple design center consultant physicians continue to follow while he is on the rehab webster. <ELECTRONICALLY SIGNED> By: Willian Faust MD 10/27/18 1144 1154 1217 Willian Faust MD /nt
--- NOTE | ~2018-10-19 | PLAN ---
[facility] [place] [address] REHAB UNIT PLAN OF CARE Name: ARTHUR POP Room #: 515-P DIS IN M.R.#: [id number] Admission: 10/19/18 Attend Phys: Willian Faust MD Discharge: 10/28/18 Date of : 77 Report #: [id number] THIS REPORT FOR: //name// CC: Willian Dozierh Irene DATE OF SERVICE: 10/21/2018 PROGRESS NOTE/OVERALL PLAN OF CARE The patient was seen back today in followup. Complains of some proximal lower extremity swelling. Discussed that he is on Lasix and then we will have to defer dosing to his medical and Nephrology physicians. I encouraged her regarding continuing to work in the therapy team and continue taking his medications, etc. Functionally, he is transferring with min assist. Gait is min assist 8 feet with a front-wheeled walker. In occupational therapy, lower body dressing is min assist, upper body is standby assistance. In speech therapy, has mild to moderate comprehensive deficits. ASSESSMENT: 1. Medical complex with generalized debilitation. 2. Sepsis, likely due to right lower extremity cellulitis. 3. Right heel wound. 4. Chronic kidney disease stage 4. 5. Diabetes mellitus type 2. 6. Recent Clostridium difficile. 7. Small pericardial effusion. 8. Prior left below knee amputation. 9. Diabetes mellitus. 10. Hypertension. 11. Prior history of medication noncompliance. PLAN: The overall plan of care is based on the preadmission screen, post-admission physician evaluation and information garnered from therapy assessments. I again discussed with him the importance of continuing with the medical management as ordered by his physicians as well as working in therapies. 1. Estimated length of stay is probably at least 2 weeks, pending progress. 2. Medical prognosis is reasonably good. 3. Anticipated interventions includes the interdisciplinary acute inpatient rehabilitation program. 4. Anticipated functional outcomes would be getting the patient maximally independent, in and out of the wheelchair, so he can return back to the home setting. 5. Discharge destination would be back to [facility] for the temporary stay there. His eventual plans to return back home with his mother. 6. Expected therapy by discipline includes PT, OT and speech, 1 hour per day [address] [address] REHAB UNIT PLAN OF CARE Name: ARTHUR POP Room #: 515-P [facility] IN .R.#: [id number] Admission: 10/19/18 Attend Phys: Willian Faust MD Discharge: 10/28/18 Date of : 77 Report #: [id number] each five days a week throughout the duration of the acute inpatient rehabilitation stay. I am not certain how cooperative, he is going to be with speech therapy and we may need to transition and over to more PT and OT. <ELECTRONICALLY SIGNED> By: Willian Faust MD 11/03/18 1323 0914 1508 Willian Faust MD /YSABEL
[~2018-10-19 13:06] MED LIST: AMLODIPINE BESY10 MG PO; ARANESP 6060 MCG/0.3 SUBQ; CALCIUM ACETAT667 M2 PO; COREG25 MG PO; HEPARIN 5,5000 UNIT3 SUBQ; HUMALOG JU100 UNIT/1; HYDRALAZINE 2525 MG PO; LASIX 80 MG TAB80 MG PO; SENNA8.6 MG PO; SEROQUEL 25 MG25 MG PO; SODIUM BICARBO650 M3 PO; SPIRONOLACTONE25 M1 PO; VANCOMYCIN HCL125 MG PO
[2018-10-19] MEDS ORDERED: VEETIDS 250MG250 M1 PO (14:10)
[2018-10-19 17:50] VITALS: BP 168/94
[2018-10-19 21:54] VITALS: BP 158/93
[2018-10-20 04:09] LABS: HEMATOCRIT 29.7 % (42.0-52.0); HEMOGLOBIN 9.7 gm/dL (14.0-18.0); MCH 28.1 pg (26.0-34.0); MCHC 32.5 g/dL (28.0-37.0); MCV 86.3 fL (80.0-100.0); RBC 3.44 mil/uL (4.50-6.00); RDW 14.8 % (10.5-14.5); WBC 7.8 thou/uL (4.0-11.0)
[2018-10-20 04:24] LABS: ALBUMIN 0.7 g/dL (3.4-5.0); CALCIUM 8.3 mg/dL (8.5-10.1); CREATININE 4.4 mg/dL (0.7-1.3); MAGNESIUM 1.9 mg/dL (1.8-2.4); PHOSPHORUS 5.5 mg/dL (2.5-4.9); POTASSIUM 4.3 mmol/L (3.5-5.1)
[2018-10-20 08:05] VITALS: BP 174/89
[2018-10-20 20:31] VITALS: BP 156/95
[2018-10-20 20:32] VITALS: BP 156/95
[2018-10-21 06:12] LABS: ALBUMIN 0.8 g/dL (3.4-5.0); CALCIUM 8.4 mg/dL (8.5-10.1); CREATININE 4.8 mg/dL (0.7-1.3); PHOSPHORUS 6.4 mg/dL (2.5-4.9); POTASSIUM 4.5 mmol/L (3.5-5.1)
[2018-10-21 08:26] VITALS: BP 162/105
[2018-10-21 21:07] VITALS: BP 156/102
[2018-10-22 07:56] VITALS: BP 154/101
[2018-10-22 10:33] VITALS: BP 145/85
[2018-10-22 20:17] VITALS: BP 148/95
[2018-10-23 20:00] VITALS: BP 151/91; BP 152/72
[2018-10-24 07:45] VITALS: BP 147/93
[2018-10-24 09:30] LABS: HEMATOCRIT 31.3 % (42.0-52.0); HEMOGLOBIN 10.3 gm/dL (14.0-18.0); MCH 28.3 pg (26.0-34.0); MCHC 32.8 g/dL (28.0-37.0); MCV 86.3 fL (80.0-100.0); RBC 3.63 mil/uL (4.50-6.00); RDW 14.8 % (10.5-14.5); WBC 7.9 thou/uL (4.0-11.0)
[2018-10-24 09:43] LABS: CALCIUM 8.6 mg/dL (8.5-10.1); CREATININE 4.3 mg/dL (0.7-1.3); PHOSPHORUS 4.8 mg/dL (2.5-4.9); POTASSIUM 4.3 mmol/L (3.5-5.1)
[2018-10-24 20:01] VITALS: BP 164/95
[2018-10-25 09:00] VITALS: BP 147/85
[2018-10-25 20:00] VITALS: BP 157/104
[2018-10-26 20:12] VITALS: BP 156/98
[2018-10-27 04:35] LABS: CALCIUM 8.4 mg/dL (8.5-10.1); CREATININE 3.9 mg/dL (0.7-1.3); PHOSPHORUS 4.3 mg/dL (2.5-4.9); POTASSIUM 4.7 mmol/L (3.5-5.1)
[2018-10-27 20:48] VITALS: BP 150/88
[2018-10-28 08:55] VITALS: BP 156/91
[2018-10-28 10:23] VITALS: BP 156/91
[2018-10-28] MEDS ORDERED: PROTONIX 20 MG20 M1 PO (13:27)
[2018-10-28] MEDS ORDERED: VEETIDS 250MG250 M1 PO ×2 (13:27→13:28)
[2018-10-28] MEDS ORDERED: ISORDIL10 MG PO (13:27)
== END 2018-10-28 15:05 | DRG 947 ==
PROVIDERS: Internal Medicine Nephrology; Physical Medicine & Rehabilitation
PROC: 3E0234Z Introduction of Serum, Toxoid and Vaccine into Muscle, Percutaneous Approach (ICD-10-PCS; 2018-10-20)
PROC: 5A1D70Z Performance of Urinary Filtration, Intermittent, Less than 6 Hours Per Day (ICD-10-PCS; principal; 2018-10-22)
PROC: 5A1D70Z Performance of Urinary Filtration, Intermittent, Less than 6 Hours Per Day (ICD-10-PCS; 2018-10-25)
PROC: 5A1D70Z Performance of Urinary Filtration, Intermittent, Less than 6 Hours Per Day (ICD-10-PCS; 2018-10-27)
DX: R53.81 Other malaise (principal); L89.613 Pressure ulcer of right heel, stage 3; E43 Unspecified severe protein-calorie malnutrition; N18.6 End stage renal disease; A40.9 Streptococcal sepsis, unspecified; L03.115 Cellulitis of right lower limb; I31.3 Pericardial effusion (noninflammatory); I13.2 Hypertensive heart and chronic kidney disease with heart failure and with stage 5 chronic kidney disease, or end stage renal disease; I50.32 Chronic diastolic (congestive) heart failure; L97.419 Non-pressure chronic ulcer of right heel and midfoot with unspecified severity; I34.0 Nonrheumatic mitral (valve) insufficiency; G31.84 Mild cognitive impairment of uncertain or unknown etiology; F32.9 Major depressive disorder, single episode, unspecified; R59.0 Localized enlarged lymph nodes; E11.40 Type 2 diabetes mellitus with diabetic neuropathy, unspecified; R74.8 Abnormal levels of other serum enzymes; E78.5 Hyperlipidemia, unspecified; E11.51 Type 2 diabetes mellitus with diabetic peripheral angiopathy without gangrene; E11.621 Type 2 diabetes mellitus with foot ulcer; E11.22 Type 2 diabetes mellitus with diabetic chronic kidney disease; Z91.14 Patient's other noncompliance with medication regimen; Z68.22 Body mass index [BMI] 22.0-22.9, adult; Z89.512 Acquired absence of left leg below knee; Z99.2 Dependence on renal dialysis; Z23 Encounter for immunization
CPT/HCPCS: 10112; 32100

== ENCOUNTER 2019-02-14 11:17 | Emergency (ER) | payer OTHER ==
[~2019-02-14] VITALS: Ht 180.3 cm; Wt 82.6 kg
[~2019-02-14 11:17] MED LIST changes: +ISORDIL10 MG PO; +PROTONIX 20 MG20 M1 PO; +VEETIDS 250MG250 M1 PO
[2019-02-14 11:40] LABS: ABSOLUTE NEUTROPHILS 2.9 thou/uL (1.4-8.2); BASOPHILS 0.8 % (0.0-2.0); EOSINOPHILS 7.2 % (0.0-3.0); HEMATOCRIT 30.7 % (42.0-52.0); HEMOGLOBIN 10.3 gm/dL (14.0-18.0); LYMPHOCYTES 25.7 % (24.0-44.0); MCH 29.5 pg (26.0-34.0); MCHC 33.5 g/dL (28.0-37.0); MCV 88.1 fL (80.0-100.0); MONOCYTES 8.9 % (1.0-8.0); PLATELET COUNT 272 thou/uL (150-400); POLYS 57.4 % (36.0-66.0); RBC 3.49 mil/uL (4.50-6.00); RDW 13.9 % (10.5-14.5)
[2019-02-14 11:52] LABS: ANION GAP 4 mmol/L (7-16); BUN 21 mg/dL (7-18); CALCIUM 8.6 mg/dL (8.5-10.1); CHLORIDE 99 mmol/L (98-107); CO2 31 mmol/L (21-32); CREATININE 3.2 mg/dL (0.7-1.3); GLUCOSE 145 mg/dL (74-106); POTASSIUM 3.3 mmol/L (3.5-5.1); SODIUM 134 mmol/L (136-145)
[2019-02-14 12:01] LABS: ALBUMIN 2.5 g/dL (3.4-5.0); LIPASE 67 U/L (73-393); MAGNESIUM 1.9 mg/dL (1.8-2.4); SGOT 61 U/L (15-37); SGPT 101 U/L (30-65); TOTAL BILIRUBIN 0.2 mg/dL (<0.1-1.0); TOTAL PROTEIN 8.2 g/dL (6.4-8.2); TROPONIN-I <0.06 ng/mL (<0.06)
[2019-02-14] MEDS ORDERED: TRAMADOL 50 MG50 MG PO (12:53)
[2019-02-14 16:25] VITALS: BP 154/90
--- NOTE | 2019-02-14 17:02 | EKG ---
[address] [place] [address] ELECTROCARDIOGRAM REPORT Name: ARTHUR POP [id number] ������������������ Admission: 02/14/19 ������������������ Attend Phys: Discharge: 02/14/19 ������������������ Date of : 77 Report #: [id number] ����������������������������������������������������������������� [id number] THIS REPORT FOR: //name// [facility] ED Test Date: 2019-02-14 Test Time: 11:19:44 Pat Name: ARTHUR POP Department: Room: Gender: M Collar Runner: CARMELA : 1975 Requested By: Samuel Valdez Order Number: [id number] MD: Donn Pierce Measurements Intervals [place] Rate: 94 P: 63 RI: 162 QRS: 33 QRSD: 87 T: 63 QT: 354 QTc: 443 Interpretive Statements Sinus rhythm LAE, consider biatrial enlargement Probable left ventricular hypertrophy Baseline wander in lead(s) V3 Compared to ECG 10/10/2018 18:52:31 Sinus tachycardia no longer present Electronically Signed On 02-14-2019 17:02:17 CDT by Donn Pierce [email or web address] ��������������������������������������������� <ELECTRONICALLY SIGNED> ���������������������������������������� By: Donn Pierce MD, [facility] ��������������������������������������������� 02/14/19 1702 1119 1119 Donn Pierce MD, [facility] /EPI
== END 2019-02-14 16:27 | disposition home or self-care (01) ==
LOC: ER 11:17
PROVIDERS: Emergency Medicine
DX: I12.0 Hypertensive chronic kidney disease with stage 5 chronic kidney disease or end stage renal disease (principal); E11.22 Type 2 diabetes mellitus with diabetic chronic kidney disease; N18.6 End stage renal disease; R07.89 Other chest pain; G89.29 Other chronic pain; R10.9 Unspecified abdominal pain; Z79.4 Long term (current) use of insulin; Z99.2 Dependence on renal dialysis

== ENCOUNTER 2019-06-29 07:56 | Emergency (ER) | payer OTHER ==
[~2019-06-29] VITALS: Ht 180.3 cm; Wt 83.5 kg
--- NOTE | ~2019-06-29 | EMS ---
[address] [address] EMS Patient Care Report Name: ARTHUR POP Room #: DEP ASHLY Peña#: [id number] Admission: 06/29/19 Attend Phys: Discharge: 06/29/19 Date of : 77 Report #: [id number] THIS REPORT FOR: //name// Report Transmitted: 06/30/2019 10:37 EMS Care Summary [place], [place]/[facility] Incident [id number] @ 06/29/2019 07:25 Incident Location [address] [place] [address] [address] Patient ARTHUR POP Male, 43 Years 1975 Patient Address Patient History Amputee,Dialysis,Type 2 Diabetes,Cellulitis, Patient Allergies No known allergies, Patient Medications Humalog, Amlodipine, Chief Complaint EYE PAIN Disposition Transported No Lights/Steward Dispatch Reason Transfer/Interfacility/Palliative Care Transported To [facility] Narrative RESPONDED TO [facility] FOR TRANSFER. UPON ARRIVAL PT FOUND IN BED ALERT AND ORIENTED. PT REPORTS EYE PAIN SINCE YESTERDAY AND UNABLE TO OPEN LEFT EYE. EYE APPEARS SWOLLEN AND IRRITATED. PT REPORTS LEG PAIN AND THAT HE WAS RECENTLY DISCONT. FROM GABAPENTIN THAT HANDLED THAT CHRONIC PAIN. PT PIVOTS TO COT. VITALS OBTAINED. PT TRANSPORTED NONEMERGENCY TO [facility]. PT SCOOTED TO BED FROM COT AND HANDRAILS UP. REPORT GIVEN TO NURSE. [address] [address] EMS Patient Care Report Name: ARTHUR POP Room #: DEP [facility]#: [id number] Admission: 06/29/19 Attend Phys: Discharge: 06/29/19 Date of : 77 Report #: [id number] Initial Vitals @07:47P: 91,R: 16,BP: 156/90,CO: 5,SpO2: 96, @07:44P: 92,R: 16,BP: 155/84,Pain: 7/10,GCS: 15,Revised Trauma: 12, Assessments @07:38MENTAL:Time Oriented,Person Oriented,Place Oriented,Event Oriented,SKIN:HEENT:Eyes: Left: Other,Head/Face: No Abnormalities,Neck/Airway: No Abnormalities,LUNG SOUNDS:General: No Abnormalities,Left Upper: No Abnormalities,Right Upper: No Abnormalities,Left Lower: No Abnormalities,Right Lower: No Abnormalities,ABDOMEN:General: No Abnormalities,Left Upper: No Abnormalities,Right Upper: No Abnormalities,Left Lower: No Abnormalities,Right Lower: No Abnormalities,PELVIS//GI:No Abnormalities,EXTREMITIES:Left Leg: Other,Left Arm: No Abnormalities,Right Arm: No Abnormalities,Right Leg: No Abnormalities,PULSE:NEURO:No Abnormalities,@07:45MENTAL:No Abnormalities,SKIN:No Abnormalities,HEENT:Eyes: Left: Other,Head/Face: No Abnormalities,Neck/Airway: No Abnormalities,LUNG SOUNDS:General: No Abnormalities,Left Upper: No Abnormalities,Right Upper: No Abnormalities,Left Lower: No Abnormalities,Right Lower: No Abnormalities,ABDOMEN:General: No Abnormalities,Left Upper: No Abnormalities,Right Upper: No Abnormalities,Left Lower: No Abnormalities,Right Lower: No Abnormalities,PELVIS//GI:No Abnormalities,EXTREMITIES:Left Leg: Other,Left Arm: No Abnormalities,Right Arm: No Abnormalities,Right Leg: No Abnormalities,PULSE:NEURO:No Abnormalities, Impression Eye Pain Procedures @07:38ALS AssessmentResponse: UnchangedSucceeded Timeline 07:22,Call Received 07:22,Dispatch Notified 07:25,Dispatched 07:28,En Route 07:36,On Scene 07:37,At Patient 07:38,ALS Assessment,Response: UnchangedSucceeded, 07:43,Depart Scene 07:44,BP: 155/84 M,PULSE: 92,RR: 16 R,SPO2: Ox,ETCO2: ,BG: ,PAIN: 7,GCS: 15, 07:47,BP: 156/90 M,PULSE: 91,RR: 16 R,SPO2: 96 Ox,ETCO2: ,BG: ,PAIN: ,GCS: , 07:53,At Destination 08:08,Call Closed Disclaimer v1.1 Copyright 2019 [employer] [facility] [address] [place] [address] EMS Patient Care Report Name: ARTHUR POP Room #: DEP ASHLY Peña#: [id number] Admission: 06/29/19 Attend Phys: Discharge: 06/29/19 Date of : 77 Report #: [id number] This EMS Care Summary contains data elements from the applicable legal record (which may be displayed differently). It is designed to provide pertinent information for the following purposes: continuity of care, clinical quality, and state data reporting. The complete legal record is available to ED staff and administrators of the receiving hospital in ES's Patient Tracker. All data is provided "as is."
[~2019-06-29 07:56] MED LIST changes: +TRAMADOL 50 MG50 MG PO
[2019-06-29] MEDS ORDERED: GABAPENTIN 100100 MG PO (08:04)
[2019-06-29] MEDS ORDERED: RENVELA800 MG PO (08:05)
[2019-06-29] MEDS ORDERED: ONDANSETRON HCL4 M2 PO (08:07)
[2019-06-29] MEDS ORDERED: THEREMS-M1 EACH PO (08:07)
[2019-06-29] MEDS ORDERED: NORCO 5-325 TA1 EAC1 PO (08:16)
[2019-06-29] MEDS ORDERED: LANTUS100 UNIT/M SUBQ (08:18)
[2019-06-29 11:08] VITALS: BP 142/81
== END 2019-06-29 11:08 | disposition home or self-care (01) ==
LOC: ER 07:56
DX: S05.02XA Injury of conjunctiva and corneal abrasion without foreign body, left eye, initial encounter (principal); G54.6 Phantom limb syndrome with pain; I12.9 Hypertensive chronic kidney disease with stage 1 through stage 4 chronic kidney disease, or unspecified chronic kidney disease; E11.22 Type 2 diabetes mellitus with diabetic chronic kidney disease; N18.4 Chronic kidney disease, stage 4 (severe); Z79.4 Long term (current) use of insulin; X58.XXXA Exposure to other specified factors, initial encounter; Y92.89 Other specified places as the place of occurrence of the external cause; Y93.89 Activity, other specified; Y99.8 Other external cause status